=== PATIENT | female | born 1975 | race Caucasian/White ===

== ENCOUNTER → 2018-08-18 10:29 | Outpatient (CLI) | payer OTHER | END | disposition home or self-care (01) | LOC: D.US 10:29 | DX: R22.9 Localized swelling, mass and lump, unspecified (principal) ==

== ENCOUNTER → 2019-01-04 16:08 | Outpatient (CLI) | payer OTHER | END | disposition home or self-care (01) | LOC: D.US 16:08 | PROVIDERS: ATTEND Family Medicine | DX: R10.13 Epigastric pain (principal); K21.9 Gastro-esophageal reflux disease without esophagitis ==